=== PATIENT | female | born 1980 | race Caucasian/White ===

== ENCOUNTER 2016-10-23 17:22 | Emergency (ER) | payer MEDICAID, OTHER ==
[2016-10-23 18:21] VITALS: BP 127/75
--- NOTE | 2016-10-23 19:03 | EDM.PDOC ---
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 They both heard a pop as well. There were some discomfort so they stopped her left leg. He was just before bedtime she went to sleep and did not have any trouble. Mild at this morning but over the course of day gradually increased. The pain became worse with breathing coughing sneezing, sometimes she would need to hold her chest. Has not taken any analgesics Occasional cough, she does smoke less than half a pack per day. Occasional sneeze which aggravates her pain immensely. Movements also aggravate the pain if she stays still the pain is less. No history of similar pain No other injuries She's had tubal ligation. 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: Polycystic Ovaries, Musculoskeletal History: Reports: Fracture Other Musculoskeletal History: ankle wrist Neurological History: Reports: Concussion, Migraines Psychiatric History: Reports: Anxiety, Depression Endocrine/Metabolic History: Reports: Diabetes, Gestational - Infectious Disease History Infectious Disease History: Reports: Chicken Pox - Past Surgical History GI Surgical History: Reports: Cholecystectomy Female Surgical History: Reports: Section, Tubal Ligation Social & Family History - Tobacco Use Smoking Status *Q: Current Every Day Smoker Years of Tobacco use: 8 Packs/Tins Daily: 0.2 Used Tobacco, but Quit: No Second Hand Smoke Exposure: Yes - Caffeine Use Caffeine Use: Reports: Coffee, Tea - Alcohol Use Days Per Week of Alcohol Use: 1 Number of Drinks Per Day: 6 Total Drinks Per Week: 6 Date of Last Drink: 10/21/16 Time of Last Drink: 02:30 - Recreational Drug Use Recreational Drug Use: No Review of Systems - Review of Systems Review Of Systems: See Below Constitutional: Reports: No Symptoms Eyes: Reports: No Symptoms Mouth/Throat: Reports: No Symptoms Respiratory: Reports: Cough (Occasional), Other (Chest pain). Denies: Shortness of Breath Cardiovascular: Reports: No Symptoms GI/Abdominal: Reports: No Symptoms Genitourinary: Reports: No Symptoms Musculoskeletal: Reports: Other (Chest wall pain right side) Skin: Reports: No Symptoms. Denies: Bruising Neurological: Reports: No Symptoms Psychiatric: Reports: No Symptoms Trauma Exam - Physical Exam Exam: See Below Exam Limited By: No Limitations General Appearance: Reports: Alert, Mild Distress, Other (Vital signs normal, no difficulty speaking, pain with deep breath) Head: Reports: Atraumatic, Normocephalic Eyes: Bilateral Eye: Normal Inspection Ears: Reports: Normal External Exam Nose: Reports: Normal Inspection Throat/Mouth: Reports: Normal Inspection Neck: Reports: Non-Tender, Full Range of Motion Respiratory Exam: Reports: No Respiratory Distress, Lungs Clear, Normal Breath Sounds, Splinting (With deep breaths), Rib Tenderness, Right (Just below the right breast) Cardiovascular: Reports: Normal Peripheral Pulses, Regular Rate, Rhythm Back: Reports: Normal Inspection, Non-Tender Extremities: No Evidence of Injury Neurologic: Reports: No Motor/Sensory Deficits, Normal Mood/Affect Skin: Reports: Normal Color, Warm/Dry Course - Vital Signs Last Recorded V/S: Last Vital Signs Temp 36.8 C 10/23/16 18:20 Pulse 76 10/23/16 18:20 Resp 16 10/23/16 18:20 BP 127/75 10/23/16 18:20 Pulse Ox 98 10/23/16 18:20 - Orders/Labs/Meds Orders: Active Orders 24 hr Category Date Time Status Chest 2V [CR] Stat Exams 10/23/16 18:44 Taken - Re-Assessments/Exams Free Text/Narrative Re-Assessment/Exam: 10/23/16 19:03 36-year-old female with right-sided chest pain, tenderness to touch, precipitated by pressure on the chest yesterday evening Splinting with coughs and sneezes. Clinically this is for fracture Chest x-ray negative by my interpretation 10/23/16 19:30 Departure - Departure Time of Disposition: 19:30 Disposition: Home, Self-Care 01 Condition: good Clinical Impression: Closed fracture of one rib of right side - Discharge Information Instructions: Rib Fracture Referrals: PCP,None [Primary Care Provider] - Forms: ED Department Discharge, Return to Work/School Form Additional Instructions: Get rechecked if you develop high fever, difficulty breathing, bad cough or other new symptoms - My Orders Last 24 Hours: My Active Orders 10/23/16 18:44 Chest 2V [CR] Stat - Assessment/Plan Last 24 Hours: My Active Orders 10/23/16 18:44 Chest 2V [CR] Stat
--- NOTE | 2016-10-24 08:18 | CR ---
Chest 2V HISTORY: No Clinical Info FINDINGS: Heart size within normal limits. Pulmonary vasculature within normal limits. No evidence f or focal consolidation or cardiopulmonary process. No pneumothorax. No definitive displaced rib frac ture. If concerned for rib fractures recommend dedicated rib views. IMPRESSION: No radiographic evidence for acute cardiopulmonary process.
== END 2016-10-23 20:00 | disposition home or self-care (01) ==
LOC: JP.ED 17:22
DX: S22.32XA Fracture of one rib, left side, initial encounter for closed fracture (principal); F17.210 Nicotine dependence, cigarettes, uncomplicated; Z79.899 Other long term (current) drug therapy; Z98.51 Tubal ligation status; Z98.890 Other specified postprocedural states; Y93.72 Activity, wrestling
CPT/HCPCS: 71020; 71020-26; 99285

== ENCOUNTER 2020-10-03 08:17 | Emergency (ER) | payer SELFPAY ==
[2020-10-03 08:30] VITALS: BP 150/90; PULSE 84
--- NOTE | 2020-10-03 08:47 | EDM.PDOC ---
ED HPI GENERAL MEDICAL PROBLEM - General Chief Complaint: ENT Problem Stated Complaint: EAR PAIN ON RIGHT SIDE Time Seen by Provider: 10/03/20 08:30 Source of Information: Reports: Patient, Family History Limitations: Reports: No Limitations - History of Present Illness INITIAL COMMENTS - FREE TEXT/NARRATIVE: 40-year-old female with worsening right jaw and ear pain for the past 3 days, feels like there may be some slight swelling developing. No fevers or chills. The pain seems to be localized around the ear. 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: Polycystic Ovaries, Musculoskeletal History: Reports: Fracture Other Musculoskeletal History: ankle wrist Neurological History: Reports: Concussion, Migraines Psychiatric History: Reports: Anxiety, Depression Endocrine/Metabolic History: Reports: Diabetes, Gestational - Infectious Disease History Infectious Disease History: Reports: Chicken Pox - Past Surgical History GI Surgical History: Reports: Cholecystectomy Female Surgical History: Reports: Section, Tubal Ligation Social & Family History - Tobacco Use Tobacco Use Status *Q: Former Tobacco User Used Tobacco, but Quit: No - Caffeine Use Caffeine Use: Reports: Coffee, Soda, Tea - Recreational Drug Use Recreational Drug Use: No ED ROS ENT - Review of Systems Review Of Systems: See Below Constitutional: Denies: Fever, Chills HEENT: Reports: Ear Pain (Right side). Denies: Hearing Loss, Vision Change Respiratory: Denies: Shortness of Breath Cardiovascular: Denies: Chest Pain GI/Abdominal: Denies: Nausea, Vomiting Skin: Denies: Erythema ED EXAM, ENT - Physical Exam Exam: See Below Exam Limited By: No Limitations General Appearance: Alert, No Apparent Distress (Looks uncomfortable but not distressed) Eye Exam: Bilateral Eye: Normal Inspection Ears: Normal TMs, Other (No significant pain with movement of the right ear pinna or helix, canal is not inflamed and the TMs normal) Mouth/Throat: Other (Patient does have a missing filling of tooth #2 of the right maxilla, no significant surrounding erythema but it is tender to percussion) Respiratory/Chest: No Respiratory Distress Course - Vital Signs Last Recorded V/S: Last Vital Signs Temp 97.5 F 10/03/20 08:34 Pulse 84 10/03/20 08:34 Resp 16 10/03/20 08:34 BP 150/90 H 10/03/20 08:34 Pulse Ox 97 10/03/20 08:34 - Re-Assessments/Exams Free Text/Narrative Re-Assessment/Exam: 10/03/20 09:14 I think this pain is coming from the maxillary molars on the right side. She was placed on penicillin 500 4 times a day, was given 10 [place] for extra pain control to add to anti-inflammatories and we will try to work her into the dental clinic this week, hopefully Sunday for dental x-rays and formal evaluation. She can return sooner if worsening despite treatment. Departure - Departure Time of Disposition: 08:55 Disposition: Home, Self-Care 01 Clinical Impression: Dental abscess - Discharge Information Instructions: Dental Abscess Referrals: Renetta Sorenson MD [Primary Care Provider] - Forms: ED Department Discharge Care Plan Goals: Take antibiotic as prescribed, continue with ibuprofen and add hydrocodone if needed. Return anytime if worsening such as vomiting the medication or increased swelling of the face or fever, otherwise go to the dental clinic on Sunday for a work in evaluation. Sepsis Event Note (ED) - Evaluation Sepsis Screening Result: No Definite Risk - Focused Exam Vital Signs: Vital Signs Temp Pulse Resp BP Pulse Ox 10/03/20 08:34 97.5 F 84 16 150/90 H 97 10/03/20 08:29 97.5 F 84 16 150/90 H 97
== END 2020-10-03 08:55 | disposition home or self-care (01) ==
LOC: JP.ED 08:17
DX: K04.7 Periapical abscess without sinus (principal); Z87.891 Personal history of nicotine dependence
CPT/HCPCS: 99282

== ENCOUNTER 2022-10-06 06:28 | Inpatient (IN) | payer SELFPAY ==
[2022-10-06] MEDS ORDERED: Sodium Chloride 0.9% 10 ML Syringe FLUSH PRN (06:54)
[2022-10-06 06:58] LABS: APPEARANCE,URINE SLIGHTLY CLOUDY (CLEAR); BILIRUBIN,URINE NEGATIVE (NEGATIVE); COLOR,URINE YELLOW (YELLOW); GLUCOSE,URINE NEGATIVE (NEGATIVE); KETONES,URINE NEGATIVE (NEGATIVE); LEUKOCYTE ESTERASE,URINE NEGATIVE (NEGATIVE); NITRITE,URINE NEGATIVE (NEGATIVE); OCCULT BLOOD,URINE NEGATIVE (NEGATIVE); PROTEIN,URINE NEGATIVE (NEGATIVE); UROBILINOGEN,URINE 0.2 EU/dL (0.2-1.0)
[2022-10-06 07:07] LABS: BACTERIA,URINE RARE; EPITHELIAL CELLS,URINE MODERATE; RBC,URINE NOT SEEN (0-5); WBC,URINE 0-5 (0-5)
[2022-10-06 07:08] LABS: AMORPHOUS SEDIMENT,URINE NOT SEEN; MUCUS,URINE FEW
[2022-10-06] MEDS ORDERED: Ketorolac 30 MG/ML SDV IVPUSH ONE (07:17)
[2022-10-06 07:32] LABS: BASOPHILS PERCENT AUTO 0.7 % (0.1-1.3); EOSINOPHILS ABSOLUTE AUTO 0.43 K/uL (0.00-0.40); EOSINOPHILS PERCENT AUTO 3.2 % (0.0-5.4); HEMATOCRIT 49.6 % (34.3-46.0); HEMOGLOBIN 16.5 g/dL (11.2-15.5); IMMATURE GRAN ABSOLUTE AUTO 0.09 K/uL (0.00-0.23); IMMATURE GRAN PERCENT AUTO 0.7 % (0.0-0.7); LYMPHOCYTES ABSOLUTE AUTO 2.23 K/uL (0.8-3.3); LYMPHOCYTES PERCENT AUTO 16.4 % (11.4-47.7); MEAN CORPUSCULAR HEMOGLOBIN 31.4 pg (31.6-35.5); MEAN CORPUSCULAR HGB CONC 33.3 g/dL (31.6-35.5); MEAN CORPUSCULAR VOLUME 94.3 fL (81.4-99.0); MONOCYTES ABSOLUTE AUTO 0.81 K/uL (0.20-0.90); PLATELET COUNT,PLT 356 K/uL (130-375); RED BLOOD CELL COUNT 5.26 M/uL (3.77-5.24); WHITE BLOOD CELL COUNT,WBC 13.6 K/uL (3.2-11.0)
[2022-10-06 07:47] LABS: CALCIUM 8.8 mg/dL (8.5-10.1); CREATININE 1.3 mg/dL (0.6-1.0); EST CRCL DRUG DOSING (CG) 54.26 mL/min; POTASSIUM,K 4.2 mmol/L (3.6-5.2)
[2022-10-06 07:48] LABS: ANION GAP 12.2 mmol/L (5.0-14.0)
[2022-10-06] MEDS ORDERED: HYDROmorphone 0.5 MG/0.5 ML Syringe IVPUSH ONE (08:28)
[2022-10-06] MEDS ORDERED: HYDROmorphone 1 MG/ML Syringe IVPUSH ONE (09:51)
[2022-10-06] MEDS ORDERED: Ondansetron 4 MG/2 ML SDV IV PRN (13:43)
[2022-10-06] MEDS ORDERED: Magnesium Hydroxide 400 MG/5 ML Susp 30 ML Cup PO PRN (13:43)
[2022-10-06] MEDS ORDERED: Ondansetron 4 MG Tab.DIS PO PRN (13:43)
[2022-10-06] MEDS: Oxybutynin 5 MG Tab PO SCH ×2 (15:11→22:57)
[2022-10-06] MEDS: Hyoscyamine 0.125 MG Tab.SL SL PRN (19:33)
[2022-10-07] MEDS: Hyoscyamine 0.125 MG Tab.SL SL PRN ×5 (03:36→23:58)
[2022-10-07] MEDS: Acetaminophen 325 MG Tab PO PRN (03:36)
[2022-10-07] MEDS: Oxybutynin 5 MG Tab PO SCH ×3 (09:11→20:03)
[2022-10-07] MEDS ORDERED: Oxybutynin 5 MG Tab PO ONE (10:55)
[2022-10-07] MEDS: oxyCODONE 5 MG Tab PO PRN (11:00)
[2022-10-07] MEDS: HYDROmorphone 1 MG/ML Syringe IVPUSH PRN ×3 (11:00→23:59)
[2022-10-07] MEDS ORDERED: HYDROmorphone 1 MG/ML Syringe IVPUSH ONE (11:52)
[2022-10-08] MEDS: HYDROmorphone 1 MG/ML Syringe IVPUSH PRN ×2 (04:03→08:15)
[2022-10-08] MEDS: Hyoscyamine 0.125 MG Tab.SL SL PRN ×3 (07:48→20:36)
[2022-10-08] MEDS: Oxybutynin 5 MG Tab PO SCH ×3 (08:56→20:37)
[2022-10-08] MEDS ORDERED: predniSONE 20 MG Tab PO ONE (11:15)
[2022-10-08] MEDS: Ibuprofen 600 MG Tab PO PRN ×2 (12:18→20:36)
[2022-10-08] MEDS: oxyCODONE 5 MG Tab PO PRN (14:30)
[2022-10-09] MEDS: oxyCODONE 5 MG Tab PO PRN ×6 (00:45→21:18)
[2022-10-09] MEDS: Hyoscyamine 0.125 MG Tab.SL SL PRN ×5 (00:45→20:34)
[2022-10-09 04:53] LABS: HEMATOCRIT 44.6 % (34.3-46.0); HEMOGLOBIN 15.1 g/dL (11.2-15.5); MEAN CORPUSCULAR HEMOGLOBIN 31.5 pg (31.6-35.5); MEAN CORPUSCULAR HGB CONC 33.9 g/dL (31.6-35.5); MEAN CORPUSCULAR VOLUME 93.1 fL (81.4-99.0); RED BLOOD CELL COUNT 4.79 M/uL (3.77-5.24); WHITE BLOOD CELL COUNT,WBC 16.5 K/uL (3.2-11.0)
[2022-10-09] MEDS: Ibuprofen 600 MG Tab PO PRN ×3 (04:59→16:35)
[2022-10-09 05:06] LABS: C-REACTIVE PROTEIN 1.49 mg/dL (0.0-0.3); CREATININE 0.9 mg/dL (0.6-1.0); EST CRCL DRUG DOSING (CG) 78.38 mL/min; POTASSIUM,K 3.9 mmol/L (3.6-5.2)
[2022-10-09 05:12] LABS: ANION GAP 10.9 mmol/L (5.0-14.0)
[2022-10-09] MEDS: Oxybutynin 5 MG Tab PO SCH ×3 (08:39→20:01)
[2022-10-09] MEDS: predniSONE 20 MG Tab PO SCH (13:58)
[2022-10-09 14:34] LABS: APPEARANCE,URINE CLOUDY (CLEAR); BILIRUBIN,URINE NEGATIVE (NEGATIVE); COLOR,URINE YELLOW (YELLOW); GLUCOSE,URINE NEGATIVE (NEGATIVE); KETONES,URINE NEGATIVE (NEGATIVE); LEUKOCYTE ESTERASE,URINE LARGE (NEGATIVE); NITRITE,URINE POSITIVE (NEGATIVE); OCCULT BLOOD,URINE LARGE (NEGATIVE); PH,URINE 5.5 (5.0-8.0); PROTEIN,URINE NEGATIVE (NEGATIVE); UROBILINOGEN,URINE 0.2 EU/dL (0.2-1.0)
[2022-10-09 14:36] LABS: BACTERIA,URINE MANY; EPITHELIAL CELLS,URINE FEW; MUCUS,URINE RARE; RBC,URINE 0-5 (0-5); WBC,URINE PACKED (0-5)
[2022-10-09 14:37] LABS: AMORPHOUS SEDIMENT,URINE FEW
[2022-10-09] MEDS: cefTRIAXone 1 GM in Sodium Chloride 0.9% 50 ML IV SCH (16:02)
[2022-10-09] MEDS: Phenazopyridine 95 MG Tab PO SCH (17:36)
[2022-10-10] MEDS: oxyCODONE 5 MG Tab PO PRN ×4 (01:12→19:06)
[2022-10-10] MEDS: Hyoscyamine 0.125 MG Tab.SL SL PRN ×5 (01:12→22:59)
[2022-10-10] MEDS: predniSONE 20 MG Tab PO SCH (07:14)
[2022-10-10] MEDS: Ibuprofen 600 MG Tab PO PRN (07:17)
[2022-10-10] MEDS: Oxybutynin 5 MG Tab PO SCH ×3 (08:26→20:43)
[2022-10-10] MEDS: Phenazopyridine 95 MG Tab PO SCH ×3 (08:27→17:35)
[2022-10-10] MEDS: cefTRIAXone 1 GM in Sodium Chloride 0.9% 50 ML IV SCH (16:23)
[2022-10-11] MEDS: oxyCODONE 5 MG Tab PO PRN ×4 (01:34→19:39)
[2022-10-11] MEDS: Ibuprofen 600 MG Tab PO PRN ×4 (03:31→22:37)
[2022-10-11] MEDS: HYDROmorphone 1 MG/ML Syringe IVPUSH PRN ×6 (04:04→15:56)
[2022-10-11] MEDS: Hyoscyamine 0.125 MG Tab.SL SL PRN ×4 (04:05→20:33)
[2022-10-11] MEDS ORDERED: LORazepam 2 MG/ML SDV IVPUSH ONE (04:18)
[2022-10-11] MEDS ORDERED: LORazepam 2 MG/ML SDV ONE (04:30)
[2022-10-11] MEDS ORDERED: Cetirizine 10 MG Tab PO ONE (04:55)
[2022-10-11] MEDS ORDERED: Lidocaine 2% Jelly 10 ML Urojet MUCMEM ONE (04:55)
[2022-10-11] MEDS ORDERED: Lidocaine 2% Jelly 10 ML Urojet ONE (05:02)
[2022-10-11 05:43] LABS: HEMATOCRIT 45.5 % (34.3-46.0); HEMOGLOBIN 15.1 g/dL (11.2-15.5); MEAN CORPUSCULAR HEMOGLOBIN 31.3 pg (31.6-35.5); MEAN CORPUSCULAR HGB CONC 33.2 g/dL (31.6-35.5); MEAN CORPUSCULAR VOLUME 94.4 fL (81.4-99.0); PLATELET COUNT,PLT 373 K/uL (130-375); RED BLOOD CELL COUNT 4.82 M/uL (3.77-5.24); WHITE BLOOD CELL COUNT,WBC 18.1 K/uL (3.2-11.0)
[2022-10-11 05:59] LABS: CREATININE 1.1 mg/dL (0.6-1.0); EST CRCL DRUG DOSING (CG) 64.13 mL/min; POTASSIUM,K 3.9 mmol/L (3.6-5.2)
[2022-10-11 06:01] LABS: ANION GAP 10.9 mmol/L (5.0-14.0)
[2022-10-11 06:35] LABS: ATYPICAL LYMPHOCYTES RARE; LYMPHOCYTES ABSOLUTE MAN 6.52 K/uL (0.8-3.3); LYMPHOCYTES PERCENT MAN 36 % (24-44); MONOCYTES ABSOLUTE MAN 0.91 K/uL (0.20-0.90); MONOCYTES PERCENT MAN 5 % (2-6); NEUTROPHILS ABSOLUTE MAN 10.68 K/uL (1.0-7.6); SEG NEUTROPHILS PERCENT MAN 59 % (36-66)
[2022-10-11] MEDS: Acetaminophen 325 MG Tab PO PRN ×2 (07:19→20:33)
[2022-10-11] MEDS: predniSONE 20 MG Tab PO SCH (07:20)
[2022-10-11] MEDS ORDERED: HYDROmorphone 1 MG/ML Syringe IVPUSH ONE (08:01)
[2022-10-11] MEDS: Phenazopyridine 95 MG Tab PO SCH ×3 (08:43→19:08)
[2022-10-11] MEDS: Oxybutynin 5 MG Tab PO SCH ×3 (08:43→20:33)
[2022-10-11] MEDS ORDERED: HYDROmorphone 1 MG/ML Syringe IM ONE (13:40)
[2022-10-11] MEDS: cefTRIAXone 1 GM in Sodium Chloride 0.9% 50 ML IV SCH (15:57)
[2022-10-12] MEDS: Hyoscyamine 0.125 MG Tab.SL SL PRN ×2 (00:36→04:42)
[2022-10-12] MEDS: Ibuprofen 600 MG Tab PO PRN (00:36)
[2022-10-12] MEDS: oxyCODONE 5 MG Tab PO PRN ×6 (00:40→23:30)
[2022-10-12] MEDS: Acetaminophen 325 MG Tab PO PRN (02:29)
[2022-10-12 05:03] LABS: BASOPHILS ABSOLUTE AUTO 0.09 K/uL (0.00-0.10); BASOPHILS PERCENT AUTO 0.4 % (0.1-1.3); EOSINOPHILS ABSOLUTE AUTO 0.16 K/uL (0.00-0.40); EOSINOPHILS PERCENT AUTO 0.7 % (0.0-5.4); HEMATOCRIT 45.5 % (34.3-46.0); HEMOGLOBIN 15.3 g/dL (11.2-15.5); IMMATURE GRAN ABSOLUTE AUTO 0.22 K/uL (0.00-0.23); LYMPHOCYTES ABSOLUTE AUTO 4.04 K/uL (0.8-3.3); LYMPHOCYTES PERCENT AUTO 17.5 % (11.4-47.7); MEAN CORPUSCULAR HEMOGLOBIN 31.4 pg (31.6-35.5); MEAN CORPUSCULAR HGB CONC 33.6 g/dL (31.6-35.5); MEAN CORPUSCULAR VOLUME 93.2 fL (81.4-99.0); MONOCYTES ABSOLUTE AUTO 1.49 K/uL (0.20-0.90); MONOCYTES PERCENT AUTO 6.5 % (3.3-12.6); NEUTROPHILS ABSOLUTE AUTO 17.08 K/uL (1.0-7.6); NEUTROPHILS PERCENT AUTO 73.9 % (40.0-78.1); PLATELET COUNT,PLT 375 K/uL (130-375); RED BLOOD CELL COUNT 4.88 M/uL (3.77-5.24); WHITE BLOOD CELL COUNT,WBC 23.1 K/uL (3.2-11.0)
[2022-10-12 05:21] LABS: CALCIUM 9.3 mg/dL (8.5-10.1); CREATININE 3.4 mg/dL (0.6-1.0); EST CRCL DRUG DOSING (CG) 20.75 mL/min; POTASSIUM,K 3.9 mmol/L (3.6-5.2)
[2022-10-12 05:24] LABS: ANION GAP 15.9 mmol/L (5.0-14.0)
[2022-10-12] MEDS ORDERED: Sodium Chloride 0.9% 1,000 ML IV SCH ×2 (06:00→10:00)
[2022-10-12] MEDS: HYDROmorphone 1 MG/ML Syringe IVPUSH PRN ×5 (08:03→22:55)
[2022-10-12] MEDS ORDERED: Sodium Phosphate,Monobasic/Sodium Phosphate,Dibasic Enema 133 ML Bottle RECTAL PRN (15:44)
[2022-10-12] MEDS ORDERED: Bisacodyl 10 MG Supp RECTAL ONE (16:00)
[2022-10-12] MEDS ORDERED: Polyethylene Glycol 3350 Powder 17 GM Packet PO ONE (16:00)
[2022-10-12] MEDS: Oxybutynin 5 MG Tab PO SCH ×2 (16:13→21:04)
[2022-10-12] MEDS: cefTRIAXone 1 GM in Sodium Chloride 0.9% 50 ML IV SCH (16:13)
[2022-10-12] MEDS: Mirabegron 25 MG Tab Extended Release PO SCH (16:55)
[2022-10-12 17:14] LABS: CALCIUM 8.7 mg/dL (8.5-10.1); EST CRCL DRUG DOSING (CG) 19.06 mL/min; POTASSIUM,K 3.6 mmol/L (3.6-5.2)
[2022-10-12 17:15] LABS: ANION GAP 14.6 mmol/L (5.0-14.0)
[2022-10-12 17:17] LABS: CREATININE 3.7 mg/dL (0.6-1.0)
[2022-10-12] MEDS ORDERED: Sodium Chloride 0.9% 1,000 ML IV ONE (17:36)
[2022-10-12] MEDS: Sodium Chloride 0.9% 1,000 ML IV SCH ×2 (20:25→23:33)
[2022-10-12] MEDS ORDERED: Cyclobenzaprine 10 MG Tab PO ONE (23:45)
[2022-10-12] MEDS ORDERED: Ondansetron 4 MG Tab.DIS PO PRN (23:53)
[2022-10-13] MEDS: HYDROmorphone 1 MG/ML Syringe IVPUSH PRN ×4 (02:20→15:21)
[2022-10-13] MEDS: Sodium Chloride 0.9% 1,000 ML IV SCH (04:27)
[2022-10-13 05:31] LABS: CALCIUM 7.7 mg/dL (8.5-10.1); CREATININE 1.4 mg/dL (0.6-1.0); EST CRCL DRUG DOSING (CG) 50.39 mL/min; POTASSIUM,K 4.2 mmol/L (3.6-5.2)
[2022-10-13 05:32] LABS: ANION GAP 12.2 mmol/L (5.0-14.0)
[2022-10-13] MEDS: oxyCODONE 5 MG Tab PO PRN ×4 (05:38→20:59)
[2022-10-13] MEDS: Oxybutynin 5 MG Tab PO SCH ×3 (09:00→20:00)
[2022-10-13] MEDS: Mirabegron 25 MG Tab Extended Release PO SCH (09:00)
[2022-10-13] MEDS ORDERED: Sodium Chloride 0.9% 1,000 ML IV SCH (10:00)
[2022-10-13] MEDS ORDERED: Sodium Phosphate,Monobasic/Sodium Phosphate,Dibasic Enema 133 ML Bottle RECTAL PRN (10:31)
[2022-10-13] MEDS ORDERED: Polyethylene Glycol 3350 Powder 17 GM Packet PO ONE (11:00)
[2022-10-13] MEDS: Cyclobenzaprine 10 MG Tab PO PRN ×2 (11:22→20:00)
[2022-10-13] MEDS: Bisacodyl 10 MG Supp RECTAL ONE ×2 (12:23→17:47)
[2022-10-13] MEDS: cefTRIAXone 1 GM in Sodium Chloride 0.9% 50 ML IV SCH (15:21)
[2022-10-14] MEDS: oxyCODONE 5 MG Tab PO PRN ×4 (02:00→17:30)
[2022-10-14 04:39] LABS: BASOPHILS ABSOLUTE AUTO 0.09 K/uL (0.00-0.10); BASOPHILS PERCENT AUTO 0.7 % (0.1-1.3); EOSINOPHILS ABSOLUTE AUTO 0.56 K/uL (0.00-0.40); EOSINOPHILS PERCENT AUTO 4.5 % (0.0-5.4); HEMATOCRIT 40.5 % (34.3-46.0); HEMOGLOBIN 13.2 g/dL (11.2-15.5); IMMATURE GRAN ABSOLUTE AUTO 0.14 K/uL (0.00-0.23); IMMATURE GRAN PERCENT AUTO 1.1 % (0.0-0.7); LYMPHOCYTES ABSOLUTE AUTO 3.37 K/uL (0.8-3.3); LYMPHOCYTES PERCENT AUTO 27.4 % (11.4-47.7); MEAN CORPUSCULAR HEMOGLOBIN 31.1 pg (31.6-35.5); MEAN CORPUSCULAR HGB CONC 32.6 g/dL (31.6-35.5); MEAN CORPUSCULAR VOLUME 95.5 fL (81.4-99.0); MONOCYTES ABSOLUTE AUTO 0.88 K/uL (0.20-0.90); MONOCYTES PERCENT AUTO 7.1 % (3.3-12.6); NEUTROPHILS ABSOLUTE AUTO 7.27 K/uL (1.0-7.6); NEUTROPHILS PERCENT AUTO 59.2 % (40.0-78.1); PLATELET COUNT,PLT 319 K/uL (130-375); RED BLOOD CELL COUNT 4.24 M/uL (3.77-5.24); WHITE BLOOD CELL COUNT,WBC 12.3 K/uL (3.2-11.0)
[2022-10-14] MEDS: Cyclobenzaprine 10 MG Tab PO PRN ×2 (04:43→20:57)
[2022-10-14 04:54] LABS: CALCIUM 8.1 mg/dL (8.5-10.1); CREATININE 0.9 mg/dL (0.6-1.0); EST CRCL DRUG DOSING (CG) 78.38 mL/min; POTASSIUM,K 4.3 mmol/L (3.6-5.2)
[2022-10-14 05:18] LABS: ANION GAP 9.3 mmol/L (5.0-14.0)
[2022-10-14] MEDS: Mirabegron 25 MG Tab Extended Release PO SCH (09:12)
[2022-10-14] MEDS: Oxybutynin 5 MG Tab PO SCH ×3 (09:12→20:57)
[2022-10-14] MEDS: cefTRIAXone 1 GM in Sodium Chloride 0.9% 50 ML IV SCH (16:42)
[2022-10-15] MEDS: oxyCODONE 5 MG Tab PO PRN ×2 (01:17→07:01)
[2022-10-15 04:57] LABS: BASOPHILS ABSOLUTE AUTO 0.08 K/uL (0.00-0.10); BASOPHILS PERCENT AUTO 0.7 % (0.1-1.3); EOSINOPHILS ABSOLUTE AUTO 0.62 K/uL (0.00-0.40); EOSINOPHILS PERCENT AUTO 5.1 % (0.0-5.4); HEMATOCRIT 40.4 % (34.3-46.0); HEMOGLOBIN 13.2 g/dL (11.2-15.5); IMMATURE GRAN ABSOLUTE AUTO 0.14 K/uL (0.00-0.23); IMMATURE GRAN PERCENT AUTO 1.2 % (0.0-0.7); LYMPHOCYTES ABSOLUTE AUTO 3.14 K/uL (0.8-3.3); MEAN CORPUSCULAR HEMOGLOBIN 31.2 pg (31.6-35.5); MEAN CORPUSCULAR HGB CONC 32.7 g/dL (31.6-35.5); MEAN CORPUSCULAR VOLUME 95.5 fL (81.4-99.0); MONOCYTES ABSOLUTE AUTO 0.78 K/uL (0.20-0.90); MONOCYTES PERCENT AUTO 6.5 % (3.3-12.6); NEUTROPHILS PERCENT AUTO 60.5 % (40.0-78.1); PLATELET COUNT,PLT 284 K/uL (130-375); RED BLOOD CELL COUNT 4.23 M/uL (3.77-5.24); WHITE BLOOD CELL COUNT,WBC 12.1 K/uL (3.2-11.0)
[2022-10-15 05:08] LABS: CALCIUM 8.1 mg/dL (8.5-10.1); CREATININE 0.9 mg/dL (0.6-1.0); EST CRCL DRUG DOSING (CG) 78.38 mL/min
[2022-10-15 07:02] VITALS: BP 100/58; PULSE 66
[2022-10-15] MEDS: Mirabegron 25 MG Tab Extended Release PO SCH (08:08)
[2022-10-15] MEDS: Oxybutynin 5 MG Tab PO SCH (08:08)
== END 2022-10-15 11:22 | disposition home or self-care (01) | DRG 690 ==
LOC: JP.ED 06:28 → JP.ICU 13:14 → OBSVTOIN 10-09 13:45
PROVIDERS: ADMIT Internal Medicine; ATTEND Internal Medicine
DX: N30.00 Acute cystitis without hematuria (principal); N17.9 Acute kidney failure, unspecified; R33.9 Retention of urine, unspecified; N32.89 Other specified disorders of bladder; B96.20 Unspecified Escherichia coli [E. coli] as the cause of diseases classified elsewhere; K21.9 Gastro-esophageal reflux disease without esophagitis; M19.90 Unspecified osteoarthritis, unspecified site; F41.9 Anxiety disorder, unspecified; F32.A Depression, unspecified; F43.10 Post-traumatic stress disorder, unspecified; E66.9 Obesity, unspecified; F17.210 Nicotine dependence, cigarettes, uncomplicated; E86.0 Dehydration; Z20.822 Contact with and (suspected) exposure to COVID-19; G43.909 Migraine, unspecified, not intractable, without status migrainosus; Z68.38 Body mass index [BMI] 38.0-38.9, adult; Z90.710 Acquired absence of both cervix and uterus; Z90.49 Acquired absence of other specified parts of digestive tract; Z98.51 Tubal ligation status
CPT/HCPCS: 36415; 51701; 51702; 51798; 74176; 74176-26; 76830; 76830-26; 76857; 76857-26; 80048; 81001; 83605; 85025; 85027; 85651; 86140; 87086; 87088; 87186; 96374; 96375; 96376; 99284; 99285-25; A9270-GY; G0378; J0696; J1170; J1885; J2060; J3360; J3490; J7030; J7512; Q0162; U0002